=== PATIENT | female | born 1990 | race Caucasian/White ===

== ENCOUNTER 2019-10-30 00:28 | Emergency (ER) | payer OTHER ==
[~2019-10-30] VITALS: Ht 182.9 cm; Wt 77.1 kg
[~2019-10-30 00:28] MED LIST: FLEXERIL PO; NORCO 5-325 TA1 EACH PO; PAXIL; XANAX
[2019-10-30 02:29] LABS: URINE BILIRUBIN NEGATIVE (Negative); URINE BLOOD NEGATIVE (Negative); URINE CLARITY CLEAR; URINE COLOR STRAW; URINE GLUCOSE-RANDOM NEGATIVE (Negative); URINE KETONES NEGATIVE (Negative); URINE LEUKOCYTES-REFLEX NEGATIVE (Negative); URINE NITRITE-REFLEX NEGATIVE (Negative); URINE PROTEIN NEGATIVE (Negative); URINE UROBILINOGEN 0.2 E.U./dl (0.2-1.0)
[2019-10-30 02:31] LABS: ABSOLUTE BASOPHILS 0.1 thou/uL (0.0-0.2); ABSOLUTE EOSINOPHILS 0.1 thou/uL (0.0-0.7); ABSOLUTE LYMPHOCYTES 3.7 thou/uL (0.8-5.3); ABSOLUTE MONOCYTES 0.6 thou/uL (0.0-1.2); ABSOLUTE NEUTROPHILS 3.9 thou/uL (1.6-8.1); BASOPHILS 0.7 %; EOSINOPHILS 0.9 %; HEMOGLOBIN 15.9 gm/dL (12.0-15.0); LYMPHOCYTES 44.4 %; MCH 35.4 pg (26.0-34.0); MCHC 35.4 g/dL (28.0-37.0); MCV 100.1 fL (80.0-100.0); MONOCYTES 6.9 %; MPV 6.7 fl. (7.2-11.1); NUCLEATED RBCS 0 /100WBC; PLATELET COUNT* 452 thou/uL (150-400); POLYS 47.1 %; RBC 4.49 mil/uL (4.20-5.00); WBC 8.3 thou/uL (4.0-11.0)
[2019-10-30 02:34] LABS: CALCIUM 9.1 mg/dL (8.5-10.1); CREATININE 0.7 mg/dL (0.6-1.3)
[2019-10-30] MEDS ORDERED: OMEPRAZOLE40 MG PO (02:43)
[2019-10-30] MEDS ORDERED: CARAFATE 1 GM TA1 GM PO (02:43)
[2019-10-30 02:44] LABS: ALBUMIN 4.5 g/dL (3.4-5.0); TOTAL BILIRUBIN 0.3 mg/dL (<0.1-1.0); TOTAL PROTEIN 8.7 g/dL (6.4-8.2)
[2019-10-30 03:39] VITALS: BP 138/80
--- NOTE | 2019-10-30 16:44 | EKG ---
[place] [address] ELECTROCARDIOGRAM REPORT Name: EMMA ALEJO Room: [facility]#: [id number] Admission: 10/30/19 Attend Phys: Discharge: 10/30/19 Date of : 86 Date of Service: 10/30/19112 Report #: [id number] THIS REPORT FOR: //name// [facility] ED Test Date: 2019-10-30 Test Time: 01:13:14 Pat Name: EMMA ALEJO Department: Room: Gender: F [employer]: EVSIN : 1990 Requested By: Eunice Prescott Order Number: [id number] Luzmaria MD: Isidro Hemphill Measurements Intervals [place] Rate: 87 P: 59 [place]: 149 QRS: 52 QRSD: 87 T: 29 QT: 374 QTc: 450 Interpretive Statements Sinus rhythm No previous ECG available for comparison Electronically Signed On 10-30-2019 16:44:25 CDT by Isidro Hemphill [email or web address] <ELECTRONICALLY SIGNED> By: Isidro Hemphill MD, [facility] 10/30/19 1644 2 2 Isidro Hemphill MD, FACC /EPI
== END 2019-10-30 03:40 | disposition home or self-care (01) ==
LOC: M.ERS 00:28
PROVIDERS: Personal Emergency Response Attendant
DX: K27.9 Peptic ulcer, site unspecified, unspecified as acute or chronic, without hemorrhage or perforation (principal); F10.129 Alcohol abuse with intoxication, unspecified; Y90.8 Blood alcohol level of 240 mg/100 ml or more; Z88.6 Allergy status to analgesic agent; Z88.5 Allergy status to narcotic agent; Z79.899 Other long term (current) drug therapy